=== PATIENT | female | born 1935 ===

== ENCOUNTER 2020-12-14 09:09 | Emergency (ER) | payer OTHER ==
[~2020-12-14] VITALS: Ht 157.5 cm; Wt 53.5 kg
[~2020-12-14 09:09] MED LIST: COZAAR50 MG; SYNTHROID50 MCG; TEGRETOL200 MG PO
== END 2020-12-14 16:24 | disposition home or self-care (01) ==
LOC: ER 09:09
DX: K57.32 Diverticulitis of large intestine without perforation or abscess without bleeding (principal); R10.84 Generalized abdominal pain

== ENCOUNTER 2024-09-13 10:27 | Emergency (ER) | payer OTHER ==
[~2024-09-13] VITALS: Ht 157.5 cm; Wt 52.2 kg
[2024-09-13 10:38] VITALS: BP 157/63; O2SAT 99
[2024-09-13] MEDS ORDERED: NORVASC2.5 M1 PO (10:40)
[2024-09-13] MEDS ORDERED: NEURONTIN300 MG PO ×2 (10:40→10:41)
[2024-09-13] MEDS ORDERED: COZAAR100 MG PO (10:40)
[2024-09-13] MEDS ORDERED: SYNTHROID75 MCG PO (10:40)
[2024-09-13] MEDS ORDERED: KETOROLAC TROMETHAMINE 60 MG VIAL IM ONE ×2 (11:00→11:05)
[2024-09-13] MEDS ORDERED: KETOROLAC TROMETHAMINE 10 MG TABLET PO ONE (11:12)
== END 2024-09-13 13:42 | disposition home or self-care (01) ==
LOC: ER 10:27
DX: S69.82XA Other specified injuries of left wrist, hand and finger(s), initial encounter (principal); W19.XXXA Unspecified fall, initial encounter; Y93.89 Activity, other specified; Y92.511 Restaurant or cafe as the place of occurrence of the external cause; Y99.8 Other external cause status; M12.532 Traumatic arthropathy, left wrist; I10 Essential (primary) hypertension; E03.8 Other specified hypothyroidism
CPT/HCPCS: 29125; 73090; 73100; 73120; 96372; 99283; J1885

== ENCOUNTER 2024-10-01 05:20 | Day surgery (SDC) | payer OTHER ==
[2024-09-27 09:12] LABS: HEMATOCRIT 32.4 % (36.0-45.00); MEAN CELL VOLUME 90.7 fL (80.00-100.00); MEAN CORPUSCULAR HGB CONC 33.6 g/dl (32.0-36.0); RED BLOOD COUNT 3.57 M/uL (4.00-6.00); RED CELL DISTRIBUTION WIDTH 15.6 % (11.5-14.5)
[2024-09-27 09:13] LABS: HEMOGLOBIN 10.9 g/dL (12.0-15.00); MEAN CORPUSCULAR HEMOGLOBIN 30.5 pg (27.00-32.0)
[2024-09-27 09:14] LABS: PLATELET COUNT 617 K/uL (150-450)
[2024-09-27 09:21] LABS: INR 1.01; PARTIAL THROMBOPLASTIN TIME 25.8 SECONDS (22.0-34.0)
[2024-09-27 09:25] LABS: COL EPI 106 SECONDS (82-175)
[2024-09-27 09:39] VITALS: BP 137/79
[2024-09-27 10:18] LABS: ALBUMIN 3.6 gm/dL (3.4-5.0); BILIRUBIN TOTAL 0.52 mg/dL (0.3-1.2); CALCIUM 9.6 mg/dL (8.5-10.1); CREATININE SERUM 0.91 mg/dL (0.55-1.02); GFR 58.61; GLOBULINA 4.1 G/DL (2.4-3.5); POTASSIUM 4.54 mEq/L (3.5-5.1); TOTAL PROTEIN 7.7 gm/dL (6.4-8.2)
[2024-09-27 11:39] LABS: URINE APPEARANCE Clear; URINE BILIRRUBIN Negative (NEGATIVE); URINE BLOOD Negative; URINE COLOR Yellow; URINE GLUCOSE Negative (NEGATIVE); URINE KETONE Negative (NEGATIVE); URINE LEUKOCYTE Trace; URINE NITRATE Negative; URINE PROTEIN Negative (NEGATIVE); URINE UROBILINOGEN 0.2 E.U./dl
[2024-09-27 11:40] LABS: URINE BACTERIA 51.3 uL (0.0-1933); URINE EPITHELIAL CELLS 4.7 uL (0.0-38.8); URINE RBC 5.8 uL (0.0-20.8); URINE WBC 7.1 uL (0.0-23.2)
[~2024-10-01] VITALS: Ht 157.5 cm; Wt 52.6 kg
[~2024-10-01 05:20] MED LIST changes: +COZAAR100 MG PO; +NEURONTIN300 MG PO; +NORVASC2.5 M1 PO; +SYNTHROID75 MCG PO
[2024-10-01] MEDS ORDERED: CEFAZOLIN SODIUM 1,000 MG VIAL ONE (06:31)
[2024-10-01] MEDS ORDERED: BUPIVACAINE HCL/Mpf 0.5% 10ML VIAL ONE (06:32)
[2024-10-01] MEDS ORDERED: SUGAMMADEX SODIUM 200 MG/2 ML VIAL IV ONE (09:18)
[2024-10-01] MEDS ORDERED: MORPHINE SULFATE 4 MG/ML VIAL IV ONE (10:50)
== END 2024-10-01 12:40 | disposition home or self-care (01) ==
LOC: CIR.AMB 05:20
PROVIDERS: ATTEND Orthopaedic Surgery
DX: S52.572A Other intraarticular fracture of lower end of left radius, initial encounter for closed fracture (principal); I10 Essential (primary) hypertension; E78.5 Hyperlipidemia, unspecified
CPT/HCPCS: 25609; 20902; L8699

== ENCOUNTER 2024-10-29 10:39 | Outpatient (CLI) | payer OTHER | END 2024-10-29 10:40 | disposition home or self-care (01) | LOC: NUCLEAR 10:39 | PROVIDERS: ATTEND Orthopaedic Surgery | DX: M81.0 Age-related osteoporosis without current pathological fracture (principal) ==

== ENCOUNTER 2024-10-29 11:10 | Outpatient (CLI) | payer OTHER | END 2024-10-29 11:16 | disposition home or self-care (01) | LOC: RAD 11:10 | PROVIDERS: ATTEND Orthopaedic Surgery | DX: S52.532D Colles' fracture of left radius, subsequent encounter for closed fracture with routine healing (principal); X58.XXXD Exposure to other specified factors, subsequent encounter ==

== ENCOUNTER 2024-11-24 10:22 | Emergency (ER) | payer OTHER ==
[~2024-11-24] VITALS: Ht 157.5 cm; Wt 53.1 kg
[2024-11-24] MEDS ORDERED: PIPERACILLIN/TAZOBACTAM SODIUM 3.375 GM VIAL IV ONE (11:30)
[2024-11-24] MEDS ORDERED: KETOROLAC TROMETHAMINE 15 MG VIAL IV ONE (11:30)
[2024-11-24] MEDS ORDERED: 0.9 % SODIUM CHLORIDE 1,000 ML IV ONE (11:30)
[2024-11-24] MEDS ORDERED: PANTOPRAZOLE SODIUM 40 MG/VIAL VIAL IV PUSH ONE (11:30)
[2024-11-24] MEDS ORDERED: HYOSCYAMINE SULFATE 0.125 MG TAB.SUBL SL ONE ×2 (11:30→17:30)
[2024-11-24 12:15] LABS: HEMATOCRIT 33.5 % (36.0-45.00); HEMOGLOBIN 11.4 g/dL (12.0-15.00); MEAN CELL VOLUME 88.8 fL (80.00-100.00); MEAN CORPUSCULAR HEMOGLOBIN 30.1 pg (27.00-32.0); MEAN CORPUSCULAR HGB CONC 33.9 g/dl (32.0-36.0); PLATELET COUNT 465 K/uL (150-450); RED BLOOD COUNT 3.77 M/uL (4.00-6.00); RED CELL DISTRIBUTION WIDTH 16.2 % (11.5-14.5)
[2024-11-24 12:35] LABS: CALCIUM 9.6 mg/dL (8.5-10.1); CREATININE SERUM 0.93 mg/dL (0.55-1.02); GFR 57.03; POTASSIUM 4.28 mEq/L (3.5-5.1)
== END 2024-11-24 17:59 | disposition home or self-care (01) ==
LOC: ER 10:22
PROVIDERS: General Practice
DX: K57.92 Diverticulitis of intestine, part unspecified, without perforation or abscess without bleeding (principal); R10.9 Unspecified abdominal pain; I10 Essential (primary) hypertension
CPT/HCPCS: 36415; 74177; 96365; 96366; 99284; J1885; J2543; J3490; J7030; Q9965

== ENCOUNTER → 2025-01-03 07:28 | Outpatient (CLI) | payer OTHER ==
[2025-01-03 09:18] LABS: ALBUMIN 3.8 gm/dL (3.4-5.0); BILIRUBIN TOTAL 0.47 mg/dL (0.3-1.2); CALCIUM 10.1 mg/dL (8.5-10.1); CREATININE SERUM 0.96 mg/dL (0.55-1.02); GFR 54.98; MAGNESIUM 2.4 mg/dL (1.8-2.4); PHOSPHOROUS 4.2 mg/dL (2.5-4.9); POTASSIUM 4.44 mEq/L (3.5-5.1); TOTAL PROTEIN 7.8 gm/dL (6.4-8.2)
[2025-01-04 13:06] LABS: CALCIUM IONIZED 5.4 mg/dL (4.5-5.6)
== END | disposition home or self-care (01) ==
LOC: LAB 07:28
PROVIDERS: ATTEND Orthopaedic Surgery
DX: E55.9 Vitamin D deficiency, unspecified (principal); M85.9 Disorder of bone density and structure, unspecified; E56.1 Deficiency of vitamin K; E21.3 Hyperparathyroidism, unspecified; E88.89 Other specified metabolic disorders; M81.8 Other osteoporosis without current pathological fracture